=== PATIENT | male | born 1995 | race American Indian/Alaskan Native ===

== ENCOUNTER 2016-08-12 18:57 | Emergency (ER) | payer SELFPAY ==
--- NOTE | 2016-08-12 19:45 | Emergency Department Report ---
Chief Complaint: Psych Stated Complaint: WITHDRAWAL SYMPTOMS - HPI History of Present Illness: This is a 21-year-old male. He presents to the ER with suicidal thoughts after methamphetamine ingestion. GCS of 15, NIH score of 0, patient is a chronic self inflicting cutter. 1013 is ordered, laboratory studies are ordered. - Exam Vital Signs: Vital Signs 08/12/16 19:07 Temperature 98.3 F Pulse Rate 103 H Respiratory 17 Rate Blood Pressure 137/88 O2 Sat by Pulse 99 Oximetry MSE screening note: Focused history and physical exam performed. Due to findings the following was ordered: ED Disposition for MSE Condition: Stable
[2016-08-12 20:10] LABS: Urine Drugs of Abuse Note Disclamer
[2016-08-12 20:18] LABS: Basophils % (Auto) 0.6 % (0.0-1.8); Hematocrit 42.7 % (35.5-45.6); Hemoglobin 14.4 gm/dl (11.8-15.2); Mean Corpuscular HGB Conc 34 % (32-34); Mean Corpuscular Hemoglobin 34 pg (28-32); Mean Corpuscular Volume 100 fl (84-94); Platelet Count 232 K/mm3 (140-440); Red Blood Count 4.28 M/mm3 (3.65-5.03); Red Cell Distribution Width 13.4 % (13.2-15.2); White Blood Count 9.4 K/mm3 (4.5-11.0)
[2016-08-12 20:19] LABS: Anion Gap 21 mmol/L; BUN/Creatinine Ratio 18.88; Blood Urea Nitrogen 17 mg/dL (9-20); Calcium 9.5 mg/dL (8.4-10.2); Carbon Dioxide 25 mmol/L (22-30); Chloride 99.5 mmol/L (98-107); Glucose 97 mg/dL (75-100); Potassium 4.1 mmol/L (3.6-5.0); Sodium 141 mmol/L (137-145)
[2016-08-12 20:20] LABS: Bilirubin,Urine NEG (Negative); Blood,Urine NEG (Negative); Ketones,Urine TR mg/dL (Negative); Leukocyte Esterase,Urine NEG (Negative); Mucus,Urine FEW /HPF; Nitrite,Urine NEG (Negative); Protein,Urine <15 mg/dL mg/dL (Negative); Urobilinogen,Urine < 2.0 mg/dL (<2.0)
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
[2016-08-13] MEDS ORDERED: NACL 0.9% 1000 ML 1,000 ML IV SCH (02:00)
[2016-08-13] MEDS ORDERED: TYLENOL PO ONE (11:21)
[2016-08-13] MEDS ORDERED: HYDROGEN PEROXIDE ONE (11:54)
[2016-08-13] MEDS ORDERED: HYDROGEN PEROXIDE TP ONE (12:05)
--- NOTE | 2016-08-13 12:08 | Event Note ---
Date: 08/13/16 Notified by nursing staff that the patient had head a fork in his underwear when he went to the bathroom. On the bathroom patient used the fork to cut his lower abdomen. Patient has a history of cutting behavior. On examination a linear vertical abrasion is noted in the lower abdomen inferior to the umbilicus. No active bleeding is noted. Wounds will be cleaned and covered. There is no indication for laceration repair.
[2016-08-13] MEDS: VISTARIL PO SCH ×2 (17:43→21:53)
[2016-08-13] MEDS ORDERED: WELLBUTRIN PO ONE (18:00)
--- NOTE | 2016-08-14 01:04 | Consultation ---
History of Present Illness - Reason for Consult Consult date: 08/13/16 Reason for consult: recent self-injury - History of Present Psychiatric Illness Today, during interview, the patient denies suicidality, homicidality or further desire to harm self or others. The patient notes that their mood is: Good. Affect is good. Patient relates sleep is: Good. Energy levels are: Good. Appetite is: Good. Anxiety: some anxiety is persistent Appearance: Patient appears appropriate for stated age and in no acute distress. Visible scars on abdomen. Sabinal on abdomen and R thigh Behavior: Pleasant Cooperation: Full Insight/Judgment: Good Level of cognition: Appropriate Level of consciousness: Appropriate Knowledge: Good Speech: Regular rate and volume. No hyperverbal nor hypoverbal speech. Thought processes: Linear and goal oriented. Thought content: No Paranoia, delusions or overt psychosis. Perceptions: Patient denies auditory or visual hallucinations. Medications and Allergies Allergies Allergy/AdvReac Type Severity Reaction Status Date / Time peanut Allergy Anaphylaxis Verified 08/12/16 19:14 Home Medications Medication Instructions Recorded Confirmed Last Taken Type Doxycycline [Vibramycin] 100 mg PO Q12HR 08/13/16 08/13/16 Unknown History buPROPion XL [Wellbutrin Xl] 150 mg PO QAM 08/13/16 08/13/16 Unknown History Active Meds: Active Medications Bupropion HCl (Wellbutrin) 150 mg PO DAILY [facility] Hydroxyzine Pamoate (Vistaril) 50 mg PO QID [facility] Last Admin: 08/13/16 21:53 Dose: 50 mg Sodium Chloride (Nacl 0.9% 1000 Ml) 1,000 mls @ 999 mls/hr IV DIRECT [facility] Last Admin: 08/13/16 05:03 Dose: 999 mls/hr Mental Status Exam - Vital signs Last Vital Signs Temp 98.2 F 08/13/16 21:05 Pulse 71 08/13/16 21:05 Resp 18 08/13/16 21:05 BP 136/79 08/13/16 21:05 Pulse Ox 99 08/13/16 21:05 Results Result Diagrams: 08/12/16 19:46 08/12/16 19:46 All other labs normal. Assessment and Plan Assessment and plan: This is a 21 year old male with likely symptoms of anxiety and depression who has recently been hospitalized in an acute care facility and just released. He was traveling from [place] to [place]. Appearently, he did not have his medication because he left them at his [facility] home. He was staying in an extended stay hotel for the past few days and he got the urge to use meth and other illicit drugs. This led to worsening SI and mood lability. While in the ER there is a report that he attempted to cut himself. Per my conversation with the patient, he was pulling out his stiches and a scab that had healed an old scar. He gregory through self-injury and he was likely doing this today or as he notes, he was just attempting to pull out a remaining stich. At this time we will restart the wellbutrin and add vistaril for anxiety and attempt to place him in an acute care facility. We will reevaluate tomorrow.
[2016-08-14] MEDS: VISTARIL PO SCH ×5 (09:38→22:02)
--- NOTE | 2016-08-14 14:27 | Event Note ---
Date: 08/14/16 Vital signs are reviewed and appreciated. Psychiatric consultation is appreciated. Waiting psychiatric placement. Vital Signs 08/12/16 08/13/16 08/13/16 19:07 05:45 09:12 Temperature 98.3 F 97.5 F L 98.6 F Pulse Rate 103 H 72 96 H Respiratory 17 16 18 Rate Blood Pressure 137/88 Blood Pressure 126/7 118/69 [Left] O2 Sat by Pulse 99 98 97 Oximetry 08/13/16 08/14/16 08/14/16 21:05 09:05 09:06 Temperature 98.2 F 97.9 F Pulse Rate 71 79 Respiratory 18 16 16 Rate Blood Pressure Blood Pressure 136/79 111/66 [Left] O2 Sat by Pulse 99 98 98 Oximetry
--- NOTE | 2016-08-14 15:06 | Progress Note ---
Subjective - Reason for Consult Consult date: 08/14/16 Reason for consult: evaluate the need to continue 1013 - Chief Complaint Chief complaint: Today, during interview, the patient denies suicidality, homicidality or further desire to harm self or others. The patient notes that their mood is: Good. Affect is good. Patient relates sleep is: Good. Energy levels are: Good. Appetite is: Good. Anxiety: none reported Appearance: Patient appears appropriate for stated age and in no acute distress. Behavior: Pleasant Cooperation: Full Insight/Judgment: Good Level of cognition: Appropriate Level of consciousness: Appropriate Knowledge: Good Speech: Regular rate and volume. No hyperverbal nor hypoverbal speech. Thought processes: Linear and goal oriented. Thought content: No Paranoia, delusions or overt psychosis. Perceptions: Patient denies auditory or visual hallucinations. Patient denies auditory or visual hallucinations, paranoia, delusions or overt psychosis. Mental Status Exam - Vital signs Last Vital Signs Temp 97.9 F 08/14/16 09:05 Pulse 79 08/14/16 09:05 Resp 16 08/14/16 09:06 BP 111/66 08/14/16 09:05 Pulse Ox 98 08/14/16 09:06 Assessment and Plan This is a 21 year old male with likely symptoms of anxiety and depression who has recently been hospitalized in an acute care facility and just released. He was traveling from [place] to [place]. Appearently, he did not have his medication because he left them at his [facility] home. He was staying in an extended stay hotel for the past few days and he got the urge to use meth and other illicit drugs. This led to worsening SI and mood lability. While in the ER there is a report that he attempted to cut himself. Per my conversation with the patient, he was pulling out his stiches and a scab that had healed an old scar. He gregory through self-injury and he was likely doing this today or as he notes, he was just attempting to pull out a remaining stich. At this time we will restart the wellbutrin and add vistaril for anxiety and attempt to place him in an acute care facility. We will reevaluate tomorrow. 08/13/16: Patient was seen and he denies SI and did not have further SIB. He was not requiring a 1013 or placement at an acute care facility at this time. 08/14/16: He was evaluated again today and he maintained that he did not wish to harm himself. He has no SI and no recent SIB. He wants to simply go home. He does have medications at home to help him cope with his depression/anxiety. Although, he notes not wanting to use illicit substance again, there is a liklihood that he may use. To prevent this relapse, I've advised him to continue to seek mental health services. Today he can be taken off the 1013 and discharged home.
[2016-08-14] MEDS: WELLBUTRIN PO SCH (15:51)
[2016-08-15] MEDS: WELLBUTRIN PO SCH (10:14)
[2016-08-15] MEDS: VISTARIL PO SCH (10:14)
[2016-08-15 10:34] VITALS: BP 126/84
--- NOTE | 2016-08-15 10:36 | Emergency Department Report ---
Blank Doc - Documentation Documentation: Patient has been reevaluated by the psychiatrist. Recommendations from psychiatry are to rescind the 1013. Patient has his psychiatric medications at home. Patient will be discharged home to follow-up as an outpatient.
== END 2016-08-15 10:46 | disposition home or self-care (01) ==
LOC: EEVIPCON 18:57 → ED 18:57
DX: R45.851 Suicidal ideations (principal); F15.10 Other stimulant abuse, uncomplicated; F17.200 Nicotine dependence, unspecified, uncomplicated; F12.10 Cannabis abuse, uncomplicated; Z91.013 Allergy to seafood
CPT/HCPCS: 36415; 80048; 80307; 81001; 82550; 85025; 96360; 99284; G0480; J7030; 80320; Q0177